=== PATIENT | female | born 1980 | race Caucasian/White ===

== ENCOUNTER 2016-11-14 18:37 | Emergency (ER) | payer OTHER ==
[~2016-11-14] VITALS: Ht 162.6 cm; Wt 99.8 kg
--- NOTE | ~2016-11-14 | CR63 ---
[facility] A Service of [facility] RADIOLOGY TEXT RESULTS PATIENT: EDGARDO SILVA LOCATION: [facility] : 76 UNIT #: [id number] AGE: [address]: Brady López MD SEX: F ORDER DR: [id number] [facility] [address] [employer], [place] [address] [id number] MR#: [id number] Acc #: [id number] NAME: EDGARDO SILVA : 1980 SEX: F STUDY DATE/TIME: 11/14/2016 20:19 UNIT: [facility] ROOM: STUDY DESCRIPTION: CR Chest 2 View Attending Physician: Er Doctor Generic Referring Physician: [facility], [facility] Ordering Physician: Brady López M.D. [facility] RE[facility] This report is preliminary unless electronic signature is present EXAM PA and lateral chest. HISTORY Cough and shortness of air and chest pain for 3 days. FINDINGS PA and lateral examination of the chest upright shows a good expansion of the parenchyma with a normal distribution of the pulmonary vascularity. There is no indication of congestion, effusion, infiltrate, tumor, or nodular density. The pleural reflections and diaphragmatic contours are normal. The cardiac silhouette and mediastinal anatomy is within normal limits. IMPRESSION Normal chest. Dictated by... Buster Garner M.D. THIS IS AN ELECTRONICALLY VERIFIED REPORT Buster Garner M.D. at 11/15/2016 11:36 PM DFL/gz TD: 11/15/2016 08:37 JOB #: [id number] MEDICAL IMAGING REPORT Page 1 of 1 COPY
--- NOTE | ~2016-11-14 | EKG ---
PATIENT: EDGARDO SILVA UNIT #: [id number] Ventricular Rate: 107 BPM Atrial Rate: 107 BPM P-R Interval: 136 ms QRS Duration: 76 ms Q-T Interval: 330 ms QTC Calculation(Bezet): 440 ms P [place]: 64 degrees Calculated R [place]: 57 degrees Calculated T [place]: 63 degrees Diagnosis Line: Sinus tachycardia Diagnosis Line: Otherwise normal ECG Diagnosis Line: When compared with ECG of 21-DEC-2014 20:12, Diagnosis Line: No significant change was found Diagnosis Line: Confirmed by GAGE SALMON MD ([id number]) on Diagnosis Line: 11/16/2016 11:32:02 AM INTERPRETING MD: VIKY MARQUES
[~2016-11-14 18:37] MED LIST: ALBUTEROL17 GM INH; ASPIRIN81 M2 PO; BACTRIM DS TABL1 TA1 PO; CIPRO PO; CLEOCIN PO; DAKIN'S473 M1 MC; DELSYM30 MG/5 M1 PO; DIABETA5 M1 PO; FLEXERIL10 MG PO; GLUCOPHAGE500 MG PO; KEFLEX500 MG PO; LORTAB 5/500 TA1 TA2 PO; MEDROL4 MG/DOSE- PO; METFORMIN HCL1000 M1 PO; NO MEDICATIONS; PERCOCET 10/31 UDTA1 PO; PYRIDIUM PO; RONDEC DROPS30 ML PO; ULTRAM PO; VICODIN 5/1 TAB 5/50 PO; VICODIN 5/500 T1 TAB PO; VOLTAREN75 MG PO; ZITHROMAX1 G/PKT PO
== END 2016-11-14 21:36 | disposition home or self-care (01) ==
LOC: CED 18:37
DX: J32.1 Chronic frontal sinusitis (principal); R05 Cough; Z98.51 Tubal ligation status; F17.200 Nicotine dependence, unspecified, uncomplicated
CPT/HCPCS: 71020; 93005; 94640; 99285